=== PATIENT | male | born 1965 | race Two or more races ===

== ENCOUNTER 2017-10-19 21:02 | Emergency (ER) | payer SELFPAY ==
[2017-10-19] MEDS ORDERED: Tetracaine HCl/PF 0.5% 4 ML Bottle EYERT ONE (21:18)
[2017-10-19] MEDS ORDERED: Fluorescein 1 MG Ophth Strip EYERT ONE (21:18)
--- NOTE | 2017-10-19 21:41 | EDM.PDOC ---
ED HPI GENERAL MEDICAL PROBLEM - General Chief Complaint: Eye Problems Stated Complaint: SOMETHING IN RT EYE Time Seen by Provider: 10/19/17 21:25 Source of Information: Reports: Patient History Limitations: Reports: No Limitations - History of Present Illness INITIAL COMMENTS - FREE TEXT/NARRATIVE: This 52 yo male patient reports to the ED with pain in his right upper eye. 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 Onset: Today Duration: Hour(s):, Constant Location: Reports: Face (righteye) Quality: Reports: Ache, Sharp Severity: Moderate Improves with: Reports: None Worsens with: Reports: None Associated Symptoms: Reports: No Other Symptoms Right Eye Pain Score (Numeric/FACES): 8 - Related Data Allergies Allergy/AdvReac Type Severity Reaction Status Date / Time No Known Allergies Allergy Verified 10/19/17 21:16 Home Meds: Home Meds . [No Known Home Meds] 10/19/17 [History] Past Medical History - Past Health History Medical/Surgical History: Denies Medical/Surgical History Social & Family History - Family History Family Medical History: Noncontributory - Tobacco Use Smoking Status *Q: Never Smoker Second Hand Smoke Exposure: No - Caffeine Use Caffeine Use: Reports: Coffee - Recreational Drug Use Recreational Drug Use: No ED ROS GENERAL - Review of Systems Review Of Systems: ROS reveals no pertinent complaints other than HPI. ED EXAM GENERAL W FULL EYE - Physical Exam Exam: See Below Exam Limited By: No Limitations General Appearance: Alert, WD/WN, Moderate Distress Eye Exam: Right Eye: Conjunctival Injection, Corneal Abrasion, Bilateral Eye: EOMI, PERRL Eyelids: Right: Erythema, Left: Normal Appearance Conjunctiva & Sclera: Right: Scleral Icterus, Left: Normal Appearance Cornea Exam: Right: Corneal Abrasion, Left: Normal Appearance Extraocular Movements: Bilateral: Intact Pupils: Normal Accommodation Pupillary Size: Bilateral: 4 mm Pupillary Reaction: Bilateral: Brisk Anterior Chamber: Bilateral: Normal Appearance Posterior Chamber: Bilateral: Normal Funduscopic Ears: Normal External Exam, Normal Canal, Hearing Grossly Normal, Normal TMs Nose: Normal Inspection, Normal Mucosa, No Blood Throat/Mouth: Normal Inspection, Normal Lips, Normal Teeth, Normal Gums, Normal Oropharynx, Normal Voice, No Airway Compromise Head: Atraumatic, Normocephalic Neck: Normal Inspection, Supple, Non-Tender, Full Range of Motion Respiratory/Chest: No Respiratory Distress, Lungs Clear, Normal Breath Sounds, No Accessory Muscle Use, Chest Non-Tender Cardiovascular: Normal Peripheral Pulses, Regular Rate, Rhythm, No Edema, No Gallop, No JVD, No Murmur, No Rub GI/Abdominal: Normal Bowel Sounds, Soft, Non-Tender, No Organomegaly, No Distention, No Abnormal Bruit, No Mass (Male) Exam: Deferred Rectal (Males) Exam: Deferred Back Exam: Normal Inspection, Full Range of Motion, NT Extremities: Normal Inspection, Normal Range of Motion, Non-Tender, Normal Capillary Refill, No Pedal Edema Neurological: Alert, Oriented, CN II-XII Intact, Normal Cognition, Normal Gait, Normal Reflexes, No Motor/Sensory Deficits Psychiatric: Normal Affect, Normal Mood Skin Exam: Warm, Dry, Intact, Normal Color, No Rash Lymphatic: No Adenopathy Course - Vital Signs Last Recorded V/S: Last Vital Signs Temp 36.8 C 10/19/17 21:10 Pulse 85 10/19/17 21:10 Resp 16 10/19/17 21:10 BP 161/83 H 10/19/17 21:10 Pulse Ox 99 10/19/17 21:10 - Orders/Labs/Meds Orders: Active Orders 24 hr Category Date Time Status Gentamicin [Gentak 0.3% Ophth Oint] Med 10/20/17 09:00 Ordered 1 gm EYERT TID Medication Orders Gentamicin Sulfate (Gentak 0.3% Ophth Oint) 1 gm EYERT TID [facility] Meds: Medications Generic Name Dose Route Start Last Admin Trade Name Freq PRN Reason Stop Dose Admin Gentamicin Sulfate 1 gm 10/20/17 09:00 Gentak 0.3% Ophth Oint EYERT TID [facility] Discontinued Medications Generic Name Dose Route Start Last Admin Trade Name Freq PRN Reason Stop Dose Admin Fluorescein Sodium 1 mg 10/19/17 21:18 10/19/17 21:26 Ful-Elissa EYERT 10/19/17 21:19 1 mg ONETIME ONE Administration Tetracaine HCl 1 ml 10/19/17 21:18 10/19/17 21:26 Tetracaine 0.5% Steri-Unit Vickie EYERT 10/19/17 21:19 2 drop ASDIRECTED ONE Administration Departure - Departure Time of Disposition: 21:42 Disposition: Home, Self-Care 01 Condition: Fair Clinical Impression: Corneal abrasion Qualifiers: Encounter type: initial encounter Laterality: right Qualified Code(s): S05.01XA - Injury of conjunctiva and corneal abrasion without foreign body, right eye, initial encounter - Discharge Information Instructions: Corneal Abrasion, [id number] Care Plan Goals: The patient was advised of the examination results during the visit. The patient was discharged with Gentak Opthalmic Ointment to apply a 1/4 inch ribbon to the lower eyelid and blink into the eye 4 times per day for 5 days. If the patient has any additional symptoms or concerns, the patient should follow-up with his primary care facility or return to the emergency department. - My Orders Last 24 Hours: My Active Orders 10/20/17 09:00 Gentamicin [Gentak 0.3% Ophth Oint] 1 gm EYERT TID - Assessment/Plan Last 24 Hours: My Active Orders 10/20/17 09:00 Gentamicin [Gentak 0.3% Ophth Oint] 1 gm EYERT TID
== END 2017-10-19 22:00 | disposition home or self-care (01) ==
LOC: DL.ED 21:02
DX: S05.01XA Injury of conjunctiva and corneal abrasion without foreign body, right eye, initial encounter (principal); X58.XXXA Exposure to other specified factors, initial encounter
CPT/HCPCS: 99283; A9270

== ENCOUNTER 2017-10-20 13:25 | Emergency (ER) | payer OTHER ==
[2017-10-20] MEDS ORDERED: Tetracaine HCl/PF 0.5% 4 ML Bottle EYERT ONE (14:39)
--- NOTE | 2017-10-20 14:40 | EDM.PDOC ---
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 Today he returns because the eye is still irritated even though he has been using the gentamicin as prescribed. He denies pain, but c/o an irritation of the rt eye, stating the it feels scratched like something is still in it. Denies visual changes. He has not made a f/u appointment with the eye clinic or his primary doctor. 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 Onset Date: 10/19/17 Duration: Constant Location: Reports: Other (Rt eye) Quality: Reports: Other (irritation and FB sensation) Improves with: Reports: None Worsens with: Reports: None Associated Symptoms: Reports: No Other Symptoms Treatments [employer]: Reports: Other Medication(s) Right Eye Pain Score (Numeric/FACES): 8 - Related Data Allergies Allergy/AdvReac Type Severity Reaction Status Date / Time No Known Allergies Allergy Verified 10/20/17 13:41 Home Meds: Home Meds . [No Known Home Meds] 10/19/17 [History] Past Medical History - Past Health History Medical/Surgical History: Denies Medical/Surgical History Social & Family History - Family History Family Medical History: Noncontributory - Tobacco Use Smoking Status *Q: Never Smoker Second Hand Smoke Exposure: No - Caffeine Use Caffeine Use: Reports: Coffee - Recreational Drug Use Recreational Drug Use: No ED ROS GENERAL - Review of Systems Review Of Systems: ROS reveals no pertinent complaints other than HPI. ED EXAM GENERAL W FULL EYE - Physical Exam Exam: See Below Exam Limited By: Language Barrier General Appearance: Alert, WD/WN, No Apparent Distress Eye Exam: Right Eye: Corneal Abrasion, Left Eye: Normal Inspection, Bilateral Eye: EOMI, PERRL Eyelids: Bilateral: Normal Appearance Conjunctiva & Sclera: Right: Injected, Other (no FB seen on exam), Left: Normal Appearance Cornea Exam: Right: Corneal Abrasion Extraocular Movements: Bilateral: Intact Pupils: Normal Accommodation Pupillary Size: Bilateral: 4 mm Pupillary Reaction: Bilateral: Brisk Anterior Chamber: Bilateral: Normal Appearance Head: Atraumatic, Normocephalic Neurological: Alert, Oriented, CN II-XII Intact, Normal Cognition, Normal Gait, No Motor/Sensory Deficits Psychiatric: Normal Affect, Normal Mood Skin Exam: Warm, Dry, Intact Course - Vital Signs Last Recorded V/S: Last Vital Signs Temp 36.4 C 10/20/17 13:41 Pulse 70 10/20/17 13:41 Resp 16 10/20/17 13:41 BP 141/78 H 10/20/17 13:41 Pulse Ox 100 10/20/17 13:41 - Orders/Labs/Meds Meds: Medications Discontinued Medications Generic Name Dose Route Start Last Admin Trade Name Freq PRN Reason Stop Dose Admin Tetracaine HCl 1 ml 10/20/17 14:39 10/20/17 14:43 Tetracaine 0.5% Steri-Unit Vickie EYERT 10/20/17 14:40 1 ml ONETIME ONE Administration Departure - Departure Time of Disposition: 14:58 Disposition: Home, Self-Care 01 Condition: Good Clinical Impression: Corneal abrasion Qualifiers: Encounter type: subsequent encounter Laterality: right Qualified Code(s): S05.01XD - Injury of conjunctiva and corneal abrasion without foreign body, right eye, subsequent encounter - Discharge Information Instructions: Corneal Abrasion, [id number] Forms: ED Department Discharge Additional Instructions: Follow up with [facility] Dr. Miller or Dr. Bedoya in one to two days. Call: [phone] to make appointment for ER follow up of eye injury. Address: [address] [place] [address]
== END 2017-10-20 15:05 | disposition home or self-care (01) ==
LOC: DL.ED 13:25
DX: S05.01XD Injury of conjunctiva and corneal abrasion without foreign body, right eye, subsequent encounter (principal); X58.XXXD Exposure to other specified factors, subsequent encounter; Y93.89 Activity, other specified; Y99.0 Civilian activity done for income or pay
CPT/HCPCS: 99282; 99283; A9270